=== PATIENT | female | born 2000 | race Caucasian/White ===

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

== ENCOUNTER 2021-01-10 13:22 | Outpatient (REF) | payer MEDICAID, SELFPAY ==
[2021-01-13 02:28] LABS: Chlamydia amplified RNA Negative (Negative); N gonorrhoeae amplified RNA Negative (Negative); Source THROAT
== END 2021-01-10 13:23 | disposition home or self-care (01) ==
LOC: NCHCN 13:22
PROVIDERS: PCP Family Medicine; Visit Provider Family Medicine
DX: J02.9 Acute pharyngitis, unspecified (principal)
CPT/HCPCS: 87491; 87591; 87070

== ENCOUNTER 2021-08-08 14:38 | Outpatient (REF) | payer MEDICAID, SELFPAY ==
--- NOTE | 2021-08-08 13:45 | PAPFT_PTH ---
PATIENT: Juliet Izaguirre [facility][id number] AGE/SX: 21/F ROOM: RE08/08/[address]: Dominique Garcia : 2000 BED: DIS: 08/08/2021 SPEC #: [id number] RECD: 08/09/21 12:53 STATUS: FER REQ #: [id number] KEYA: 08/08/21 13:[address]: Dominqiue Garcia DEPT: [facility] Cytology RECD BY: Evita Diaz ENTERED: 08/09/21 12:53 SP TYPE: PAPFT OTHR DR: Lotus Wong Tissues: 1 - CX/ENDOCX FOR PAP SMEARS Procedures: PAP THIN PREP/[facility] Screening Comments: [id number] (CHLAMYDIA/GC)
[2021-08-10 15:25] LABS: Chlamydia Result Negative (Negative); GC Result Negative (Negative)
== END 2021-08-08 14:39 | disposition home or self-care (01) ==
LOC: NCHCN 14:38
PROVIDERS: PCP Family Medicine; Visit Provider Nurse Practitioner Community Health
DX: Z12.4 Encounter for screening for malignant neoplasm of cervix (principal); Z11.3 Encounter for screening for infections with a predominantly sexual mode of transmission
CPT/HCPCS: 87491; 87591; 88142

== ENCOUNTER 2022-09-07 10:29 | Outpatient (REF) | payer MEDICAID, SELFPAY ==
[2022-09-08 13:04] LABS: Chlamydia Result Negative (Negative); GC Result Negative (Negative)
== END 2022-09-07 10:30 | disposition home or self-care (01) ==
LOC: NCHCN 10:29
PROVIDERS: PCP Family Medicine; Visit Provider Family Medicine
DX: Z11.3 Encounter for screening for infections with a predominantly sexual mode of transmission (principal)
CPT/HCPCS: 87491; 87591